=== PATIENT | male | born 1975 | race Two or more races ===

== ENCOUNTER 2019-11-09 18:34 | Emergency (ER) | payer SELFPAY ==
[~2019-11-09] VITALS: Ht 170.2 cm; Wt 79.4 kg
[2019-11-09 18:38] VITALS: BP 161/90
[2019-11-09] MEDS: Morphine Sulfate 2mg/ml Inj(IV/IM USE ONLY) IM ONE ×2 (19:15→19:47)
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
[2019-11-09] MEDS ORDERED: Morphine Sulfate 4mg/ml Inj (IV USE ONLY) ONE (19:41)
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
[2019-11-09] MEDS ORDERED: Ketorolac 60mg Inj IM ONE (20:00)
[2019-11-09] MEDS ORDERED: IBUPROFEN600 M1 ORAL (20:03)
[2019-11-09 20:15] VITALS: BP 138/89
--- NOTE | 2019-11-10 15:25 | Diagnostic Imaging Report ---
Indication: Pain, trauma Technique: 3 views of the left shoulder Comparison: none Findings: No acute fractures. No dislocations. The joint spaces are preserved Impression: Negative
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
--- NOTE | 2019-11-10 15:26 | Diagnostic Imaging Report ---
Indication: Trauma, pain Technique: 2 views of the left wrist Comparison: none Findings: Exam is limited due to the availability of only 2 views. No definite acute fractures. No dislocations. The joint spaces are preserved Impression: Negative
== END 2019-11-09 20:15 | disposition home or self-care (01) ==
LOC: EMR 19:35
DX: S00.83XA Contusion of other part of head, initial encounter (principal); S43.402A Unspecified sprain of left shoulder joint, initial encounter; S69.90XA Unspecified injury of unspecified wrist, hand and finger(s), initial encounter; E11.9 Type 2 diabetes mellitus without complications; I10 Essential (primary) hypertension; E78.00 Pure hypercholesterolemia, unspecified; Y04.2XXA Assault by strike against or bumped into by another person, initial encounter; Y92.9 Unspecified place or not applicable; M25.532 Pain in left wrist; M25.531 Pain in right wrist
CPT/HCPCS: 70450; 70486; 72125; 96372; 99284